=== PATIENT | female | born 1990 | race Caucasian/White ===

== ENCOUNTER 2022-11-15 22:43 | Emergency (ER) | payer MEDICAID ==
[~2022-11-15] VITALS: Ht 172.7 cm; Wt 63.5 kg
--- NOTE | 2022-11-15 22:48 | NUR ---
PATIENT DROPPED OFF BY BOYFRIEND. PT ADMITS TO DRINKING TONIGHT. PT SMELLS OF ETOH. MOVES EXTREMITIES SLOWLY, BUT DOES NOT OPEN EYES. PLACED IN BED WITH HER SERVICE DOG.
--- NOTE | 2022-11-15 22:50 | NUR ---
PT PROVIDED WITH WARM BLANKET FOR COMFORT.
--- NOTE | 2022-11-16 02:05 | NUR ---
pt sister at bedside. Pt is [id number]. not in any distress, breathing even and unlabored. Pt ambualted to the restroom on steady gait. PO challenge tolerated by the pt.
--- NOTE | 2022-11-16 02:28 | NUR ---
Patient discharged to home in stable condition under the care fo her sister, Shana. Written and verbal after care instructions given. Patient verbalizes understanding of instruction. Pt ambulatory with a steady gait
[2022-11-16 02:30] VITALS: BP 109/57; TEMP 98.3
== END 2022-11-16 02:31 | disposition home or self-care (01) ==
LOC: ER 22:55
DX: F10.129 Alcohol abuse with intoxication, unspecified (principal); Y90.9 Presence of alcohol in blood, level not specified